=== PATIENT | female | born 2000 | race Caucasian/White ===

== ENCOUNTER 2019-03-24 11:08 | Emergency (ER) | payer OTHER ==
[~2019-03-24] VITALS: Ht 170.2 cm; Wt 101.2 kg
[2019-03-24] MEDS ORDERED: citalopram (11:16)
[2019-03-24] MEDS ORDERED: bcp (11:16)
[2019-03-24] MEDS ORDERED: LEXA1TAB PO (11:17)
[2019-03-24 12:00] LABS: BASO % 0.4 % (0.0-1.0); EOS # 0.1 10^3/uL (0.0-0.5); EOS % 0.7 % (0.0-3.0); HEMATOCRIT 38.5 % (36.0-47.0); HEMOGLOBIN 12.5 g/dl (12.0-15.5); LYMPH # 1.6 10^3/uL (1.5-5.0); LYMPH % 21.4 % (24.0-44.0); MEAN CORPUSCULAR HEMOGLOBIN 28.9 pg (27.0-33.0); MEAN CORPUSCULAR HGB CONC 32.5 g/dl (32.0-36.5); MEAN CORPUSCULAR VOLUME 89.1 fl (80.0-96.0); MONO # 0.4 10^3/uL (0.0-0.8); MONO % 5.5 % (0.0-5.0); NEUTROPHILS # 5.3 10^3/uL (1.5-8.5); NEUTROPHILS % 71.9 % (36.0-66.0); PLATELET COUNT, AUTOMATED 210 10^3/uL (150-450); RED BLOOD COUNT 4.32 10^6/uL (4.00-5.40); WHITE BLOOD COUNT 7.4 10^3/uL (4.0-10.0)
[2019-03-24 12:06] LABS: BILIRUBIN, URINE MANUAL OBSCURED (NEGATIVE); GLUCOSE, URINE (UA) MANUAL NEGATIVE (NEGATIVE); KETONE, URINE MANUAL OBSCURED mg/dL (NEGATIVE); UROBILINOGEN, URINE MANUAL OBSCURED mg/dl (NORMAL)
[2019-03-24 12:18] LABS: AMORPHOUS SEDIMENT, URINE SMALL AMOUNT (NEGATIVE); BACTERIA, URINE SMALL AMOUNT; HYALINE CAST, URINE NONE SEEN /lpf (0-1); RBC, URINE TNTC /hpf (0-3); SQUAMOUS EPITHELIAL CELL URINE SMALL AMOUNT /hpf (SMALL AMT)
[2019-03-24 12:26] LABS: BLOOD UREA NITROGEN 7 MG/DL (7-18); CALCIUM LEVEL 8.9 MG/DL (8.5-10.1); CARBON DIOXIDE LEVEL 24 MEQ/L (21-32); CHLORIDE LEVEL 109 MEQ/L (98-107); CREATININE FOR GFR 0.74 MG/DL (0.55-1.30); GLUCOSE, FASTING 82 MG/DL (70-100); POTASSIUM SERUM 3.9 MEQ/L (3.5-5.1); SODIUM LEVEL 141 MEQ/L (136-145)
[2019-03-24 12:59] LABS: HCG, SERUM QUALITATIVE NEGATIVE (NEGATIVE)
--- NOTE | 2019-03-24 14:58 | REP ---
Pelvic sonography: History: Right-sided pelvic pain. Heavy bleeding. No comparison imaging. Findings: Transabdominal and transvaginal scanning are performed. Uterine dimensions are normal at 7.9 x 3.9 x 4.7 cm. Endometrial echo is 0.6 cm thick and centrally placed. There is independent motion of echogenic material in the endometrium consistent with ongoing bleeding. No free fluid is noted in the cul-de-sac. No focal uterine mass is seen. The right ovary measures 5.6 x 4.0 x 5.5 cm. It contains an anechoic cyst which appears simple sonographically measuring 4.8 x 3.8 x 4.3 cm. The left ovary measures 3.0 x 1.8 x 2.0 cm. Doppler flow is present bilaterally in the ovaries. Resistive indices are 0.62 and 0.46 on the left and right respectively. Impression: There is a 4.8 cm simple cyst in the right ovary. Independent motion is seen in echogenic material in the endometrium consistent with ongoing vaginal bleeding. Otherwise negative pelvic sonography. Electronically Signed by Mckinley Mckeon MD 03/24/2019 07:50 P
[2019-03-24 15:19] VITALS: BP 141/88
[2019-03-24 15:40] LABS: CHLAMYDIA DNA AMPLIFICATION NEGATIVE (NEGATIVE); GC DNA AMPLIFICATION NEGATIVE (NEGATIVE)
== END 2019-03-24 15:22 | disposition home or self-care (01) ==
LOC: M ED 11:08
DX: N83.299 Other ovarian cyst, unspecified side (principal); N92.0 Excessive and frequent menstruation with regular cycle

== ENCOUNTER → 2021-01-26 | Outpatient (CLI) | payer OTHER ==
[~2021-01-26] MED LIST: LEXA1TAB PO; bcp; citalopram
[2021-01-26 18:21] LABS: FREE T4 1.1 NG/DL (0.76-1.46); THYROID STIMULATING HORMONE 1.8 uIU/ML (0.358-3.740)
== END ==
LOC: M LAB 16:39
PROVIDERS: ATTEND Internal Medicine Gastroenterology
DX: K58.2 Mixed irritable bowel syndrome (principal)

== ENCOUNTER → 2021-01-26 | Outpatient (REF) | payer OTHER | LOC: M LAB REF 17:40 | PROVIDERS: ATTEND Internal Medicine Gastroenterology | DX: K58.2 Mixed irritable bowel syndrome (principal) ==

== ENCOUNTER 2021-05-06 10:33 | Day surgery (SDC) | payer OTHER ==
[~2021-05-06] VITALS: Ht 170.2 cm; Wt 109.3 kg
[~2021-05-06 10:33] MED LIST changes: +AMOX875T2 PO; +LEXA1TAB2 PO; +NS 1,000 ML IV ONE; +TRAZ-189 PO
[2021-05-06] MEDS ORDERED: LIDOCAINE 2% 100MG/5ML SDV (FOR ANES.) As Ordered ONE (12:15)
[2021-05-06] MEDS ORDERED: propofoL 500 MG/50 ML VIAL As Ordered ONE (12:15)
[2021-05-06] MEDS ORDERED: fentaNYL 100 MCG/2 ML INJECTION As Ordered ONE (12:15)
[2021-05-06] MEDS ORDERED: propofoL 200 MG/20 ML VIAL As Ordered ONE (13:09)
[2021-05-06 13:49] VITALS: BP 125/77
== END 2021-05-06 13:58 | disposition home or self-care (01) ==
LOC: M OPP 10:33
PROVIDERS: ATTEND Internal Medicine Gastroenterology
DX: K64.8 Other hemorrhoids (principal); R19.4 Change in bowel habit; R10.84 Generalized abdominal pain; R19.7 Diarrhea, unspecified; R12 Heartburn; Z79.2 Long term (current) use of antibiotics; Z79.899 Other long term (current) drug therapy
CPT/HCPCS: 43239; 45380; 88305; J3010